=== PATIENT | female | born 1970 | race Caucasian/White ===

== ENCOUNTER → 2016-12-05 | Outpatient (REF) | payer OTHER | LOC: M LAB REF 17:48 | PROVIDERS: ATTEND Internal Medicine Medical Oncology | DX: C18.9 Malignant neoplasm of colon, unspecified (principal) ==

== ENCOUNTER → 2017-12-04 | Outpatient (REF) | payer OTHER ==
[2017-12-06 12:08] LABS: CARCINOEMBRYONIC ANTIGEN < 0.5 NG/ML (<2.5)
== END ==
LOC: M LAB REF 17:52
DX: C18.9 Malignant neoplasm of colon, unspecified (principal)

== ENCOUNTER 2019-06-03 06:32 | Day surgery (SDC) | payer OTHER ==
[~2019-06-03] VITALS: Ht 170.2 cm; Wt 136.1 kg
[~2019-06-03 06:32] MED LIST: ABIL1TAB11 PO; ABIL1TAB13 PO; IBUP200C25 PO; NS 1,000 ML IV ONE; PARO40TA2 PO
[2019-06-03] MEDS ORDERED: LIDOCAINE 2% INJ 100 MG/5 ML SDV (FOR ANES.) As Ordered ONE (07:03)
[2019-06-03] MEDS ORDERED: PROPOFOL 200 MG/20 ML VIAL As Ordered ONE (07:03)
--- NOTE | 2019-06-03 07:54 | ROOR ---
Patient Name: Shanice Prater Procedure Date: 06/03/2019 7:32 AM Date of : 1970 Age: 49 Room: [facility] Gender: Female Note Status: Finalized Procedure: Colonoscopy Indications: High risk colon cancer surveillance: Personal history of colon cancer Providers: DO Anny Montanez MD: Mahesh Gomes MD Requesting Provider: Medicines: Propofol per Anesthesia Complications: No immediate complications. Procedure: Pre-Anesthesia Assessment: - Prior to the procedure, a History and Physical was performed, and patient medications and allergies were reviewed. The patient is competent. The risks and benefits of the procedure and the sedation options and risks were discussed with the patient. All questions were answered and informed consent was obtained. Patient identification and proposed procedure were verified by the physician, the nurse, the anesthesiologist and the salvage engineering technician in the endoscopy suite. Mental Status Examination: normal. Airway Examination: normal oropharyngeal airway and neck mobility. Respiratory Examination: clear to auscultation. CV Examination: normal. Prophylactic Antibiotics: The patient does not require prophylactic antibiotics. Prior Anticoagulants: The patient has taken no previous anticoagulant or antiplatelet agents. ASA Grade Assessment: III - A patient with severe systemic disease. After reviewing the risks and benefits, the patient was deemed in satisfactory condition to undergo the procedure. The anesthesia plan was to use monitored anesthesia care (MAC). Immediately prior to administration of medications, the patient was re-assessed for adequacy to receive sedatives. The heart rate, respiratory rate, oxygen saturations, blood pressure, adequacy of pulmonary ventilation, and response to care were monitored throughout the procedure. The physical status of the patient was re-assessed after the procedure. The Colonoscope was introduced through the anus and advanced to the ileocolonic anastomosis. The colonoscopy was performed without difficulty. The patient tolerated the procedure well. Findings: Internal hemorrhoids were found during retroflexion. The hemorrhoids were small and Grade I (internal hemorrhoids that do not prolapse). A 3 mm polyp was found in the transverse colon. The polyp was flat. Polypectomy was attempted with a jumbo cold forceps. No tissue was resected. Polyp resection was unsuccessful due to the polypectomy being technically difficult and complex. A less than 5 mm polyp was found in the rectum. The polyp was hyperplastic. The polyp was removed with a jumbo cold forceps. Resection and retrieval were complete. Estimated blood loss was minimal. The exam was otherwise without abnormality on direct and retroflexion views. Impression: - Internal hemorrhoids. - One 3 mm polyp in the transverse colon. Unsuccessful polyp resection. - One less than 5 mm polyp in the rectum, removed with a jumbo cold forceps. Resected and retrieved. - The examination was otherwise normal on direct and retroflexion views. Recommendation: - Patient has a contact number available for emergencies. The signs and symptoms of potential delayed complications were discussed with the patient. Return to normal activities tomorrow. Written discharge instructions were provided to the patient. - Repeat colonoscopy in 3 - 5 years for surveillance based on pathology results. - Return to my office as previously scheduled. Chan Adhikari DO 06/03/2019 7:53:35 AM Electronically signed by Chan Adhikari DO Number of Addenda: 0 Note Initiated On: 06/03/2019 7:32 AM Estimated Blood Loss: Estimated blood loss was minimal.
[2019-06-03 08:10] VITALS: BP 128/58
== END 2019-06-03 08:35 | disposition home or self-care (01) ==
LOC: M OPP 06:32
PROVIDERS: ATTEND Surgery
DX: Z85.038 Personal history of other malignant neoplasm of large intestine (principal); Z08 Encounter for follow-up examination after completed treatment for malignant neoplasm; K64.0 First degree hemorrhoids; D12.3 Benign neoplasm of transverse colon; K62.1 Rectal polyp; Z92.21 Personal history of antineoplastic chemotherapy

== ENCOUNTER 2023-09-13 07:45 | Day surgery (SDC) | payer OTHER ==
[~2023-09-13] VITALS: Ht 170.2 cm; Wt 143.7 kg
[~2023-09-13 07:45] MED LIST changes: +ARIP10TA32 PO; +MEDR5TAB3; +MELO15TA28 PO; -NS 1,000 ML IV ONE; +TUME1CAP PO
[2023-09-13] MEDS: NS 1,000 ML IV ONE (08:05)
[2023-09-13] MEDS ORDERED: propofoL 200 MG/20 ML VIAL As Ordered ONE (08:09)
[2023-09-13 09:22] VITALS: TEMP 96.8
[2023-09-13 09:35] VITALS: BP 112/53; O2SAT 96
== END 2023-09-13 09:40 | disposition home or self-care (01) ==
LOC: M OPP 07:45
PROVIDERS: ATTEND Surgery
DX: Z12.11 Encounter for screening for malignant neoplasm of colon (principal); Z86.010 Personal history of colon polyps; Z85.038 Personal history of other malignant neoplasm of large intestine; K64.0 First degree hemorrhoids; G47.30 Sleep apnea, unspecified; Z79.1 Long term (current) use of non-steroidal anti-inflammatories (NSAID); Z79.899 Other long term (current) drug therapy